=== PATIENT | male | born 1950 | race Caucasian/White ===

== ENCOUNTER 2019-01-12 19:09 | Inpatient (IN) | payer MEDICARE, MEDICAID ==
[~2019-01-12] VITALS: Ht 193 cm; Wt 107.0 kg
--- NOTE | 2019-01-12 19:42 | NUR ---
Pt. BIB EMS from [facility] for Medical Clearance to MHU, pt. has multiple superficial lacerations to the face, abdomen, and bilat. FA - R FA was stapled at [facility] prior to arrival, suicide precautions intiated, Student Development Dean notified, security placed at bedside for pt., safety, belongings put in nursing station, pt. given tray of food,
--- NOTE | 2019-01-12 19:47 | NUR ---
Rad. tech. at bedside for CXR
--- NOTE | 2019-01-12 20:00 | NUR ---
Report given to Saba ZAMBRANO,
--- NOTE | 2019-01-12 20:17 | NUR ---
Pt. taken off unit via stretcher by ISAC WAGNER
[2019-01-12 21:11] VITALS: BP 114/60
[2019-01-12] MEDS ORDERED: INSU100V10 SQ (21:26)
[2019-01-12] MEDS ORDERED: LOSA1TAB36 PO (21:26)
[2019-01-12] MEDS ORDERED: GABA-534 PO (21:26)
[2019-01-12] MEDS ORDERED: INSU100V11 SQ (21:26)
[2019-01-12] MEDS ORDERED: CLONAZEPAM 0.5 MG TABLET PO PRN (21:45)
[2019-01-12] MEDS ORDERED: MAGNESIUM HYDROXIDE 30 ML LIQUID UDC PO PRN (21:45)
[2019-01-12] MEDS ORDERED: MAG HYDROX/AL HYDROX/SIMETH 30 ML LIQUID UDC PO PRN (21:45)
[2019-01-12] MEDS: TEMAZEPAM 7.5 MG CAPSULE PO PRN (23:16)
--- NOTE | 2019-01-13 00:24 | NUR ---
Received patient from the ED. Awake , alert, oriented x4. Labile mood. Multiple self induced lacerations noted on face, abdomen and arms. Patient stated 'My , and she use to take good care of me. Im alone, and I am so sad, and tried to kill myself'. Patient denies wanting to hurt himself at this time. VS are stable , oriented to environment, Medicated per MD order to help him sleep. In bed, alarm on, sitter in room, Frequent rounds made. Continuing to monitor through out the night.
--- NOTE | 2019-01-13 06:24 | NUR ---
Patient remained asleep for the night. Frequent rounds made, and patient remained free from injury. Will endorse plan of care to on coming shift.
[2019-01-13 07:30] VITALS: BP 120/72
[2019-01-13] MEDS: DULOXETINE 30 MG CAPSULE.DR PO SCH ×2 (10:54→17:07)
[2019-01-13] MEDS ORDERED: DEXTROSE 50% 50 ML DISP.SYRIN IV PRN (11:00)
[2019-01-13] MEDS: BLOOD SUGAR DIAGNOSTIC 1 EACH STRIP VI SCH ×3 (12:20→20:07)
[2019-01-13] MEDS: INSULIN REGULAR, HUMAN 300 UNIT/3 ML VIAL SQ PRN ×2 (12:22→20:09)
[2019-01-13 15:31] VITALS: BP 104/65
[2019-01-13] MEDS ORDERED: INSULIN ASPART 1000 UNITS/10 ML VIAL(NOVOLOG) SQ SCH (16:30)
[2019-01-13] MEDS: INSULIN REGULAR, HUMAN 300 UNIT/3 ML VIAL SQ SCH (16:30)
[2019-01-13] MEDS: GABAPENTIN 300 MG CAPSULE PO SCH (17:07)
[2019-01-13 20:00] VITALS: BP 118/66
[2019-01-13] MEDS: TEMAZEPAM 7.5 MG CAPSULE PO PRN (22:48)
--- NOTE | 2019-01-14 04:49 | NUR ---
Received Pt awake in bed, calm upon approach. A+Ox4, denies pain, VS stable. HS BS 140, 2 units regular insulin administer per sliding scale. States he is depressed, hopeless, and helpless since his dies in September. Reports increasing uncontrollable suicidal thoughts and stated, "I'm so sorry, I can't control it, I just feel like I want to hurt myself, like I want to . I felt I should tell you." Pt stated he had no plan. Pt encouraged to verbalize his thoughts and feelings, emotional support provided. Pt agreed to verbally contract for safety while inside the hospital, remains unreliable for safety outside the hospital. Denies AH/VH. Pt will be monitored q 15 minutes for the rest of the shift, will endorse to day shift.
[2019-01-14] MEDS: BLOOD SUGAR DIAGNOSTIC 1 EACH STRIP VI SCH ×4 (06:32→20:47)
[2019-01-14 07:23] LABS: BASOPHILS % (AUTO) 0.4 % (0.0-2.0); EOSINOPHILS # (AUTO) 0.3 K/uL (0.0-0.7); EOSINOPHILS % (AUTO) 3.3 % (0.0-7.0); HEMATOCRIT 47.9 % (36.7-47.1); HEMOGLOBIN 16.2 g/dL (12.5-16.3); LYMPHOCYTES # (AUTO) 2.4 K/uL (20.0-40.0); MEAN CORPUSCULAR HEMOGLOBIN 32.8 uug (23.8-33.4); MEAN CORPUSCULAR HGB CONC 34 g/dL (32.5-36.3); MEAN CORPUSCULAR VOLUME 96.6 fL (73.0-96.2); MONOCYTES # (AUTO) 0.7 K/uL (2.0-10.0); MONOCYTES % (AUTO) 7.5 % (0.0-11.0); NEUTROPHILS # (AUTO) 5.4 K/uL (1.8-8.9); NEUTROPHILS % (AUTO) 61.8 % (38.5-71.5); PLATELET COUNT (AUTO) 269 K/uL (152-348); RED BLOOD CELL COUNT(AUTO) 4.96 MIL/uL (4.06-5.63); WHITE BLOOD COUNT (AUTO) 8.8 K/uL (3.6-10.2)
[2019-01-14 07:25] LABS: BILIRUBIN,TOTAL 0.9 mg/dL (0.2-1.0); CREATININE 1.1 mg/dL (0.6-1.3); MAGNESIUM 2.3 mg/dL (1.8-2.4); PHOSPHOROUS 3.1 mg/dL (2.5-4.9); POTASSIUM 4.5 mmol/L (3.5-5.1); TOTAL PROTEIN, SERUM 7.1 g/dL (6.4-8.2)
[2019-01-14 07:30] VITALS: BP 144/76
[2019-01-14] MEDS: INSULIN REGULAR, HUMAN 300 UNIT/3 ML VIAL SQ SCH (07:46)
[2019-01-14] MEDS: HYDROCHLOROTHIAZIDE 12.5 MG CAPSULE PO SCH (08:03)
[2019-01-14] MEDS: GABAPENTIN 300 MG CAPSULE PO SCH ×2 (08:03→16:33)
[2019-01-14] MEDS: DULOXETINE 30 MG CAPSULE.DR PO SCH ×2 (08:03→16:33)
[2019-01-14] MEDS: LOSARTAN POTASSIUM 50 MG TABLET PO SCH (08:04)
[2019-01-14 08:26] LABS: THYROID STIMULATING HORMONE 2.368 mIU/mL (0.358-3.740)
[2019-01-14 15:06] VITALS: BP 135/72
[2019-01-14] MEDS: INSULIN REGULAR, HUMAN 300 UNIT/3 ML VIAL SQ PRN ×2 (16:34→20:48)
--- NOTE | 2019-01-14 18:21 | NUR ---
Patient remains in bed through out the day. Assess patient every 15 minutes to assess for suicidal ideation. Patient denies having a plan for suicide. Patient states he is sad about his wifes passing to cancer. Patient is compliant with all medication treatment and adminstration. Patient is alert and oriented x3. Patient is able to verbalize needs and needs have been met. Will continue to monitor and endorse plan of care to slot shift supervisor.
[2019-01-14 19:44] VITALS: BP 119/74
--- NOTE | 2019-01-14 20:00 | NUR ---
Received patient in bed. AAOx4,calm upon approach, denies pain, VS stable. Patient stated that "he felt like hurting himself a little tonight but no thoughts of doing it. CFS in this hospital.Will continue to monitor closely and assess the patient
[2019-01-15] MEDS: ACETAMINOPHEN 325 MG TABLET PO PRN ×2 (01:50→20:22)
[2019-01-15] MEDS: TEMAZEPAM 7.5 MG CAPSULE PO PRN (01:51)
[2019-01-15] MEDS: BLOOD SUGAR DIAGNOSTIC 1 EACH STRIP VI SCH ×4 (06:39→20:30)
[2019-01-15 08:30] VITALS: BP 146/76
[2019-01-15] MEDS: DULOXETINE 30 MG CAPSULE.DR PO SCH ×2 (08:43→17:33)
[2019-01-15] MEDS: HYDROCHLOROTHIAZIDE 12.5 MG CAPSULE PO SCH (08:44)
[2019-01-15] MEDS: LOSARTAN POTASSIUM 50 MG TABLET PO SCH (08:44)
[2019-01-15] MEDS: GABAPENTIN 300 MG CAPSULE PO SCH ×2 (08:45→17:33)
[2019-01-15] MEDS: INSULIN REGULAR, HUMAN 300 UNIT/3 ML VIAL SQ PRN ×4 (08:52→20:33)
--- NOTE | 2019-01-15 11:22 | NUR ---
Firearms Report: vegetable worker completed and submitted a [employer] firearms report for a 5150 DTS certification.
--- NOTE | 2019-01-15 12:43 | NUR ---
Initial Discharge Instructions: Patient currently lives at home alone [[address] [place] [id number]; [phone]]. Per patient, he would like to return there upon discharge. Spoke with pt's [id number], Demetria Salazar, ([phone]) who seems to be a strong support for the patient. SW discussed with [id number] the need to remove the scalpel and sharp objects from pt's home. Demetria agreed and reported she will contact pt's son, Giovani ([phone]) and ivqdsbpc-ph-zej, Vic ([phone]) to help with this. Patient will benefit from Home Health and Intensive Outpatient Program if available. SW will continue to collaborate with pt, family, and MD regarding most appropriate discharge plans for the patient. SW will form a safe and proper discharge plan.
[2019-01-15 16:44] VITALS: BP 138/68
[2019-01-15 20:25] VITALS: BP 107/65
[2019-01-15] MEDS: ENOXAPARIN SODIUM 40 MG/0.4 ML DISP.SYRIN SQ SCH (21:01)
--- NOTE | 2019-01-15 21:33 | NUR ---
Received pt resting in bed. AAO x4. No acute distress noted. C/o pain on the upper left leg, pt stated that he has been having this pain for a long time now. Pt asked for Tylenol. Due meds given as ordered. Pt stated that he is sad because of the of his . Denies S/I. Emotional support provided. Encouraged pt to verbalize thoughts and feelings, pt agreed to report to me if he feels suicidal. Pt will have duplex venous to r/o DVT. Pt was started on new order of Lovenox, explained this med to the pt and verbalized understanding. Safety measures maintained. Bed alarm on. Will continue to monitor. Addendum: 01/15/19 at 2211 by Miracle De La Paz RN No redness, no warmth noted on the calf or leg area.
[2019-01-16] MEDS: TEMAZEPAM 7.5 MG CAPSULE PO PRN (01:38)
--- NOTE | 2019-01-16 01:42 | NUR ---
Pt woke up and used the restroom. He verbalized that he felt suicidal but has no plan. After 5 mins, pt denies S/I. He stated, "I don't feel suicidal anymore. I don't know why I felt that. I just feel bad about myself and I feel like crap." Encouraged pt to express thoughts and feelings. Pt verbally agreed contract for safety while in the hospital. Q15min check implemented. Safety measures maintained. Will continue to closely monitor pt.
[2019-01-16] MEDS: BLOOD SUGAR DIAGNOSTIC 1 EACH STRIP VI SCH ×4 (06:31→21:20)
[2019-01-16 07:46] LABS: BASOPHILS # (AUTO) 0.1 K/uL (0.0-8.0); BASOPHILS % (AUTO) 1.2 % (0.0-2.0); EOSINOPHILS # (AUTO) 0.2 K/uL (0.0-0.7); EOSINOPHILS % (AUTO) 3.2 % (0.0-7.0); HEMATOCRIT 44.7 % (36.7-47.1); LYMPHOCYTES # (AUTO) 1.9 K/uL (20.0-40.0); LYMPHOCYTES % (AUTO) 25.3 % (20.5-51.5); MEAN CORPUSCULAR HEMOGLOBIN 32.3 uug (23.8-33.4); MEAN CORPUSCULAR HGB CONC 34 g/dL (32.5-36.3); MONOCYTES # (AUTO) 0.6 K/uL (2.0-10.0); MONOCYTES % (AUTO) 7.8 % (0.0-11.0); NEUTROPHILS # (AUTO) 4.7 K/uL (1.8-8.9); NEUTROPHILS % (AUTO) 62.5 % (38.5-71.5); PLATELET COUNT (AUTO) 247 K/uL (152-348); RED BLOOD CELL COUNT(AUTO) 4.66 MIL/uL (4.06-5.63); WHITE BLOOD COUNT (AUTO) 7.6 K/uL (3.6-10.2)
[2019-01-16 07:59] VITALS: BP 126/61
[2019-01-16 08:04] LABS: CREATININE 0.9 mg/dL (0.6-1.3); MAGNESIUM 2.2 mg/dL (1.8-2.4); PHOSPHOROUS 3.3 mg/dL (2.5-4.9); POTASSIUM 3.7 mmol/L (3.5-5.1)
[2019-01-16] MEDS: LOSARTAN POTASSIUM 50 MG TABLET PO SCH (08:55)
[2019-01-16] MEDS: HYDROCHLOROTHIAZIDE 12.5 MG CAPSULE PO SCH (08:55)
[2019-01-16] MEDS: DULOXETINE 30 MG CAPSULE.DR PO SCH (08:55)
[2019-01-16] MEDS: GABAPENTIN 300 MG CAPSULE PO SCH ×2 (08:55→17:32)
[2019-01-16] MEDS: INSULIN REGULAR, HUMAN 300 UNIT/3 ML VIAL SQ PRN ×3 (11:55→21:26)
[2019-01-16 16:13] VITALS: BP 128/78
--- NOTE | 2019-01-16 17:13 | NUR ---
GROUP NOTE: Patients were asked to draw a picture of how they view themselves and reflect on picture. Subjective: "I am a personable person and like talking with people" Objective: Patient expressed interest in attending group and was present for group the entire time. Patient maintained eye contact throughout the group time. Patient stayed on topic with group topic. Assessment: Patient presented in a calm and cooperative mood. Patient's thought process seemed linear and goal-directed, as he spoke about sometimes having a negative view of himself but that he goes to therapy to talk about his issues. Plan: mesh worker will continue to encourage group attendance as scheduled. mesh worker will continue to provide support to the patient to encourage insight and coping skills.
[2019-01-16 21:16] VITALS: BP 106/59
[2019-01-16] MEDS: DULOXETINE 60 MG CAPSULE.DR PO SCH (21:20)
[2019-01-16] MEDS: ENOXAPARIN SODIUM 40 MG/0.4 ML DISP.SYRIN SQ SCH (21:27)
[2019-01-17] MEDS: BLOOD SUGAR DIAGNOSTIC 1 EACH STRIP VI SCH ×4 (06:59→21:00)
[2019-01-17 07:30] VITALS: BP 119/67
[2019-01-17] MEDS: HYDROCHLOROTHIAZIDE 12.5 MG CAPSULE PO SCH (08:58)
[2019-01-17] MEDS: LOSARTAN POTASSIUM 50 MG TABLET PO SCH (08:58)
[2019-01-17] MEDS: DULOXETINE 30 MG CAPSULE.DR PO SCH (08:58)
[2019-01-17] MEDS: GABAPENTIN 300 MG CAPSULE PO SCH ×2 (08:58→17:41)
[2019-01-17 16:00] VITALS: BP_SYST 114; BP_DIAS 65; BP_DIAS 70
[2019-01-17] MEDS: INSULIN REGULAR, HUMAN 300 UNIT/3 ML VIAL SQ PRN ×2 (17:46→21:05)
[2019-01-17 19:51] LABS: *BILIRUBIN,URIN NEGATIVE (NEGATIVE); *BLOOD, URINE NEGATIVE (NEGATIVE); *CLARITY,URINE CLEAR (CLEAR); *COLOR,URINE YELLOW (YELLOW); *KETONES,URINE NEGATIVE (NEGATIVE); *UROBILINOGEN,URINE 0.2 E.U./dl (NORMAL); LEUKOCYTE ESTERASE ,URINE NEGATIVE (NEGATIVE); NITRITE, URINE NEGATIVE (NEGATIVE); UGLUCOSE TRACE (NEGATIVE)
[2019-01-17 20:01] LABS: WBC,URINE 0-3 /HPF (0-3)
[2019-01-17] MEDS: DULOXETINE 60 MG CAPSULE.DR PO SCH (20:24)
[2019-01-17] MEDS: ENOXAPARIN SODIUM 40 MG/0.4 ML DISP.SYRIN SQ SCH (20:25)
[2019-01-17 20:28] VITALS: BP 116/72
--- NOTE | 2019-01-18 06:01 | NUR ---
GPS: REMAIN CALM AND COOPERATIVE WITH MEDS AND CARE. NO AGGRESSIVE BEHAVIOR NOTED DENIES SI. RESTING IN BED. CONTINUE PLAN OF CARE.
[2019-01-18] MEDS: BLOOD SUGAR DIAGNOSTIC 1 EACH STRIP VI SCH ×4 (06:32→20:58)
--- NOTE | 2019-01-18 06:35 | NUR ---
GPS: SLEPT 8 HRS THROUGH THE NIGHT.
[2019-01-18 07:30] VITALS: BP 124/73
[2019-01-18] MEDS: GABAPENTIN 300 MG CAPSULE PO SCH ×2 (08:01→16:14)
[2019-01-18] MEDS: DULOXETINE 30 MG CAPSULE.DR PO SCH (08:01)
[2019-01-18] MEDS: HYDROCHLOROTHIAZIDE 12.5 MG CAPSULE PO SCH (08:02)
[2019-01-18] MEDS: LOSARTAN POTASSIUM 50 MG TABLET PO SCH (08:02)
[2019-01-18] MEDS: INSULIN REGULAR, HUMAN 300 UNIT/3 ML VIAL SQ PRN ×3 (12:13→20:57)
[2019-01-18 16:00] VITALS: BP 100/66
--- NOTE | 2019-01-18 18:20 | NUR ---
PATIENT IS PLEASANT AND CALM WHEN APPROACHED. PATIENT IS COMPLIANT WITH ALL MEDICATIONS AND TREATMENT. PATIENT IS ALERT AND ORIENTED X3. PATIENT DENIES ANY SI/HI AT THIS TIME. WILL CONTINUE TO MONITOR AND ENDORSE POC TO TECHNICAL SUPPORT ANALYST.
--- NOTE | 2019-01-18 19:40 | NUR ---
RECEIVED PATIENT IN THE DAY ROOM HE IS NOTED A/O X 4. CALM AND PLEASANT UPON APPROACHED. HE IS NOTED LESS WITHDRAWN, LESS ISOLATIVE, ABLE TO VERBALIZED FEELINGS. HE STATED THAT HE CONTINUE HAVING PASSIVE AND VAGUE SUICIDAL THOUGHT; HOWEVER, DENIES ANY PLANS. HE IS ABLE TO CFS. HE IS ALSO NOTED WITH FAIR INSIGHT AND JUDGMENT TO THE REASON FOR HIS ADMISSION TO MHU. NO S/S OF INFECTION NOTED ON HIS SELF INFLICTED CUTS. ONE STAPLE NOTED IN HIS RIGHT ANTERIOR FOREARM. NO S/S OF INFECTION NOTED AT THIS TIME WELL. V/S, LABS STABLE AT THIS TIME. PATIENT WAS REASSURED FOR HIS SAFETY. WILL CONTINUE TO MONITOR.
[2019-01-18] MEDS: DULOXETINE 60 MG CAPSULE.DR PO SCH (20:55)
[2019-01-18 20:57] VITALS: BP 123/63
[2019-01-18] MEDS: ENOXAPARIN SODIUM 40 MG/0.4 ML DISP.SYRIN SQ SCH (20:58)
[2019-01-19] MEDS: BLOOD SUGAR DIAGNOSTIC 1 EACH STRIP VI SCH ×4 (06:51→20:29)
[2019-01-19 07:30] VITALS: BP 116/60
[2019-01-19] MEDS: LOSARTAN POTASSIUM 50 MG TABLET PO SCH (08:20)
[2019-01-19] MEDS: DULOXETINE 30 MG CAPSULE.DR PO SCH (08:20)
[2019-01-19] MEDS: GABAPENTIN 300 MG CAPSULE PO SCH ×2 (08:20→16:53)
[2019-01-19] MEDS: HYDROCHLOROTHIAZIDE 12.5 MG CAPSULE PO SCH (08:20)
[2019-01-19 16:00] VITALS: BP 109/65
[2019-01-19] MEDS: INSULIN REGULAR, HUMAN 300 UNIT/3 ML VIAL SQ PRN ×2 (16:55→20:33)
[2019-01-19] MEDS: DULOXETINE 60 MG CAPSULE.DR PO SCH (20:31)
[2019-01-19] MEDS: ENOXAPARIN SODIUM 40 MG/0.4 ML DISP.SYRIN SQ SCH (20:34)
[2019-01-19 20:45] VITALS: BP 135/78
[2019-01-20] MEDS: BLOOD SUGAR DIAGNOSTIC 1 EACH STRIP VI SCH ×4 (06:30→20:33)
[2019-01-20 07:30] VITALS: BP 107/66
[2019-01-20] MEDS: DULOXETINE 30 MG CAPSULE.DR PO SCH (08:02)
[2019-01-20] MEDS: LOSARTAN POTASSIUM 50 MG TABLET PO SCH (08:02)
[2019-01-20] MEDS: HYDROCHLOROTHIAZIDE 12.5 MG CAPSULE PO SCH (08:02)
[2019-01-20] MEDS: GABAPENTIN 300 MG CAPSULE PO SCH ×2 (08:03→16:58)
[2019-01-20] MEDS: INSULIN REGULAR, HUMAN 300 UNIT/3 ML VIAL SQ PRN ×3 (11:13→20:34)
[2019-01-20 16:00] VITALS: BP 114/72
--- NOTE | 2019-01-20 18:11 | NUR ---
Patient is calm and pleasant upon approach. Patient is compliant with all medical administration and care. Patient is able to verbalize needs. Patient denies any pain/discomfort/SI/HI through out the day Will continue to monitor the patient closely and endorse plan of care to overnight houseperson nurse.
[2019-01-20 20:00] VITALS: BP 119/63
[2019-01-20] MEDS: DULOXETINE 60 MG CAPSULE.DR PO SCH (20:22)
[2019-01-20] MEDS: ENOXAPARIN SODIUM 40 MG/0.4 ML DISP.SYRIN SQ SCH (20:23)
--- NOTE | 2019-01-21 06:11 | NUR ---
GPS: Remain calm and cooperative with medication and nursing care. no agitation noted. denies si at this time. slept 6 hrs through the night. continue monitor for safety.
[2019-01-21] MEDS: BLOOD SUGAR DIAGNOSTIC 1 EACH STRIP VI SCH ×4 (06:26→21:04)
[2019-01-21 07:30] VITALS: BP 121/62
[2019-01-21] MEDS: DULOXETINE 30 MG CAPSULE.DR PO SCH (08:42)
[2019-01-21] MEDS: GABAPENTIN 300 MG CAPSULE PO SCH ×2 (08:42→16:08)
[2019-01-21] MEDS: LOSARTAN POTASSIUM 50 MG TABLET PO SCH (08:43)
[2019-01-21] MEDS: HYDROCHLOROTHIAZIDE 12.5 MG CAPSULE PO SCH (08:43)
[2019-01-21] MEDS: INSULIN REGULAR, HUMAN 300 UNIT/3 ML VIAL SQ PRN ×3 (11:18→21:12)
--- NOTE | 2019-01-21 12:36 | NUR ---
Discharge planning: clean up worker called and spoke with Sandra, staff member, at [facility] [[phone]] inquiring about intensive outpatient programs [IOP]. Per Sandra, the facility does offer IOPs. Sandra states that one of their intake coordinators [Karlee or Michael] will call this copywriter back with admissions information. clean up worker awaiting call back.
[2019-01-21 15:32] VITALS: BP 95/55
--- NOTE | 2019-01-21 18:55 | NUR ---
patient compliant with all medication administration and medical care. patient denies any SI/HI at this time. will continue to monitor and endorse POC to plant operator/shift supervisor,
[2019-01-21 20:07] VITALS: BP 121/73
[2019-01-21] MEDS: DULOXETINE 60 MG CAPSULE.DR PO SCH (21:03)
[2019-01-21] MEDS: TEMAZEPAM 7.5 MG CAPSULE PO PRN (22:15)
--- NOTE | 2019-01-22 05:04 | NUR ---
Patient received while sitting in TV room and watching TV. Able to make needs known. Calm and cooperative. Pleasant upon approach. Denies SI. Compliant with care and medication. All due medication given and well tolerated. [place]uchboni roberts, BS: 183 @2100, 3 units insulin administered based on sliding scale. Will continue to monitor the patient closely and endorse plan of care to day shift nurse.
[2019-01-22] MEDS: BLOOD SUGAR DIAGNOSTIC 1 EACH STRIP VI SCH ×4 (06:30→20:27)
[2019-01-22 07:30] VITALS: BP_SYST 104; BP_SYST 119; BP_DIAS 64; BP_DIAS 65
[2019-01-22] MEDS: LOSARTAN POTASSIUM 50 MG TABLET PO SCH (08:01)
[2019-01-22] MEDS: GABAPENTIN 300 MG CAPSULE PO SCH ×2 (08:02→17:04)
[2019-01-22] MEDS: HYDROCHLOROTHIAZIDE 12.5 MG CAPSULE PO SCH (08:02)
[2019-01-22] MEDS: DULOXETINE 60 MG CAPSULE.DR PO SCH ×2 (08:03→20:33)
[2019-01-22] MEDS ORDERED: DULOXETINE 30 MG CAPSULE.DR PO SCH (09:00)
--- NOTE | 2019-01-22 11:33 | NUR ---
Discharge planning: care worker met with patient to discuss discharge plan. Per patient, he states his [id number], Demetria Salazar [[phone]] may be able to provide transportation back to his home [[address], [place] [address]]. Patient also provided social media community manager with name of PCP [Dr. Segundo Herrera] and states he has a follow-up appointment scheduled for 02/17/2019. Patient states he uses [facility] [[id number], [place] [address]; ] for mental health support, but does not have a psychiatrist. care worker called [facility] to inquire about patient seeing a psychiatrist, but phone kept ringing with no answer. care worker will continue to follow-up. care worker called and left a voicemail for Demetria requesting a call back to discuss discharge planning.
[2019-01-22] MEDS: INSULIN REGULAR, HUMAN 300 UNIT/3 ML VIAL SQ PRN ×2 (11:54→20:30)
[2019-01-22 15:15] VITALS: BP 124/70
--- NOTE | 2019-01-22 16:03 | NUR ---
Discharge planning: alcoholism worker sent fax referral to [facility] [phone: ; fax: ; Contact: Day] for admission review. alcoholism worker awaiting confirmation of acceptance.
--- NOTE | 2019-01-22 18:05 | NUR ---
patient is calm and pleasant with every interaction. Patient is involved in group activities through out the day,. Patient has good understanding of medications and is compliant with all medication treatment and medical care. Patient denies any SI/HI at this time. Will continue to monitor and endorse plan of care to casino shift manager.
[2019-01-22 20:00] VITALS: BP 111/66
[2019-01-22] MEDS: TEMAZEPAM 7.5 MG CAPSULE PO PRN (21:18)
[2019-01-23] MEDS: BLOOD SUGAR DIAGNOSTIC 1 EACH STRIP VI SCH ×2 (06:16→11:52)
[2019-01-23 07:30] VITALS: BP 108/69
[2019-01-23] MEDS: DULOXETINE 60 MG CAPSULE.DR PO SCH (08:25)
[2019-01-23] MEDS: GABAPENTIN 300 MG CAPSULE PO SCH (08:25)
[2019-01-23] MEDS: LOSARTAN POTASSIUM 50 MG TABLET PO SCH (08:26)
[2019-01-23] MEDS: HYDROCHLOROTHIAZIDE 12.5 MG CAPSULE PO SCH (08:26)
--- NOTE | 2019-01-23 10:49 | NUR ---
DISCHARGE NOTE: Patient will be discharged back to his home [[address], [place] [address]; phone: ] where he lives alone. Transportation will be provided by patient [id number], Demetria Salazar [[phone]], at 4:00pm. Patient is alert and oriented x4, denies any SI/HI, and is able to plan for self-care. Patient was briefed on discharge and aware and agreeable with plan. Patient will follow-up with primary care physician, Dr. Segundo Herrera [[address] [place] [address] [address], [place] [address]; ] and states he has an appointment scheduled for February 18, 2019 at 10:00am. Patient has a psychiatry follow-up appointment scheduled with Ana Hagan psych rn, on February 20, 2019 at 3:30pm at [facility] [[id number], [place] [address]; ]. Additionally patient has a therapy appointment scheduled for Friday, January 25, 2019 at 8:00am with Akbar Cantrell at [facility]. Patient will also follow-up with his director of casework, Sierra Espino, on Wednesday, January 30, 2019 at 3:30pm at [facility]. Patient has also been provided with home health services including physical therapy evaluation, medication management, and nursing evaluation with [facility] [[id number], [place] [address]; ]. Acceptance of services was provided yoga coordinator, Day, who states patient will be assessed on January. cinder worker has also provided patient with outpatient mental health resources including [facility] Crisis Line [ ], [facility] [ ], and the National Suicide Prevention Lifeline [ ].
[2019-01-23] MEDS: INSULIN REGULAR, HUMAN 300 UNIT/3 ML VIAL SQ PRN (12:02)
[2019-01-23 16:00] VITALS: BP 127/76
--- NOTE | 2019-01-23 16:39 | NUR ---
1600 DISCHARGED INSTRUCTION GIVEN TO PATIENT REGARDING MEDICATIONS TO CONTINUE AT HOME. PRESCRIPTION BOTH PSYCH AND MEDICAL GIVEN ,INSTRUCTED TO FILL IT TO HIS PHARMACY- PATIENT VERBALIZED UNDERSTANDING. ALL BELONGINGS RETURNED AND SIGNED BY PATIENT. ONE STAPLE REMOVED ON HIS LEFT FOREARM,LACERATION WHICH IS ALREADY HEALED. 1615 PATIENT DISCHARGED HOME, PCKED UP BY TRANSPORTATION SET UP BY SISTER DULCE. pATIENT WENT HOME STABLE, DENIES SI/HI . NO DELUSION. NO A/V HALLUCINATION NOTED
== END 2019-01-23 16:15 | disposition home health service (06) | DRG 885 ==
LOC: ER 19:11 → GPS 20:04
PROVIDERS: ADMIT Psychiatry & Neurology Psychiatry; ATTEND Nurse Practitioner Acute Care
DX: F33.2 Major depressive disorder, recurrent severe without psychotic features (principal); D68.59 Other primary thrombophilia; E11.42 Type 2 diabetes mellitus with diabetic polyneuropathy; S51.811D Laceration without foreign body of right forearm, subsequent encounter; S01.81XD Laceration without foreign body of other part of head, subsequent encounter; S31.119D Laceration without foreign body of abdominal wall, unspecified quadrant without penetration into peritoneal cavity, subsequent encounter; S41.112D Laceration without foreign body of left upper arm, subsequent encounter; S41.111D Laceration without foreign body of right upper arm, subsequent encounter; X78.1XXD Intentional self-harm by knife, subsequent encounter; Z79.4 Long term (current) use of insulin; I10 Essential (primary) hypertension; Z99.3 Dependence on wheelchair; M79.662 Pain in left lower leg; M79.661 Pain in right lower leg; E86.0 Dehydration; E78.00 Pure hypercholesterolemia, unspecified; S39.94XD Unspecified injury of external genitals, subsequent encounter; X83.8XXD Intentional self-harm by other specified means, subsequent encounter
CPT/HCPCS: 36415; 71045; 83735; 84100; 84443; 85025; 85610; 85730; 97110; 97116; 97165; 97530; 97535; A4663; J1650; J1815